=== PATIENT | female | born 1940 | race Caucasian/White ===

== ENCOUNTER → 2021-11-11 14:30 | Outpatient (BNVA) | payer MEDICARE, OTHER, SELFPAY | PROVIDERS: PCP Physical Medicine & Rehabilitation; Visit Provider Internal Medicine | DX: M47.816 Spondylosis without myelopathy or radiculopathy, lumbar region (principal) | CPT/HCPCS: 99202 ==

== ENCOUNTER 2022-01-08 08:42 | Day surgery (SDC) | payer MEDICARE, OTHER, SELFPAY ==
--- NOTE | ~2022-01-08 | FL_ITS ---
EXAMINATION: XR FLUOROSCOPY WITH IMAGES CLINICAL INFORMATION: Lumbar medial branch RFA COMPARISON: None. TECHNIQUE: Fluoroscopy performed by Dr. Oswaldo León. Fluoroscopy time: 0.3 minutes. Cumulative Dose: 11.4 mGy. DAP: 1.10 Gy-cm2. Images: 3. FINDINGS: There are spinal needles/electrodes overlying the outer right L3, L4, and L5 neural foramen. There are multilevel degenerative changes with disc narrowing and vertebral spurring. FL/FL guidance in OR IMPRESSION: Fluoroscopy for pain management procedures.
[2022-01-08 09:18] VITALS: BMI 19.1
[2022-01-08 09:42] VITALS: BP 115/64; PULSE 74; RESP 15; TEMP 36.6; O2SAT 97
--- NOTE | 2022-01-08 11:35 | MHC.SHP ---
Pre-Procedural Eval Section A Date of Service: 01/08/22 The patient is an INPATIENT: No Changes since office visit: Yes Patient answered all questions The History & Physical has been completed within 30 days and I have reviewed it.: Yes Section B Chief Complaint: Spondylosis without myelopathy or radiculopathy Relevant Family History (Specify if Yes): No Relevant Social History: None Present Medications: see Short Stay Collaborative assessment Medical History: No relevant PMH History of Previous Operations: No relevant previous surgery Allergies: Allergies Allergy/AdvReac Type Severity Reaction Status Date / Time amoxicillin [From Augmentin] AdvReac Severe Diarrhea Verified 11/11/21 14:42 clavulanic acid AdvReac Severe Diarrhea Verified 11/11/21 14:42 [From Augmentin] Review of Systems Sugical H&P ROS: Negative: Constitution, Cardiovascular and Respiratory Exam Surgical H&P Exam: Normal: HEENT, Normal: Heart and Normal: Lungs Plan Diagnosis/Plan: Unchanged I have reviewed the history and physical and performed a pertinent physical examination on my patient. No changes have occurred unless specified.
--- NOTE | 2022-01-08 11:35 | PM.OP ---
Brief Operative Note Date of Service: 01/08/22 Pre-op diagnosis: Lumbar spondylosis Post-op diagnosis: same Procedure: Right lumbar medial branches L3, L4, L5 DR radiofrequency ablation Implants: None Surgeon: Oswaldo León MD Anesthesia: local Was an Wood Type Finisher used for this Procedure?: No Estimated blood loss (mL): 1 Pathology: none sent Condition: stable Disposition: same day
--- NOTE | 2022-01-08 11:36 | W.PM.OPN ---
Operative Note Operative Note Date of Service: 01/08/22 Narrative: Radiofrequency lesioning medial branch nerves, Right L3, L4 medial branches and L5 dorsal ramus (L4/5 and L5/S1) (2 levels, 3 nerves) After obtaining written consent, pre-procedure blood pressure and heart rate were stable and recorded in the nursing record. Standard monitors were applied. The patient was placed in the prone position. The lumbar area was prepped with chloraprep and draped in sterile fashion. The skin over the target for each medial branch nerve was anesthetized with 0.5% lidocaine. An 18 gauge radiofrequency cannula was advanced to each target site under fluoroscopic guidance. No paresthesias were elicited with needle placement and aspiration was negative for heme and CSF. Impedences were verified under 600 ohms. Sensory testing (50 Hz) and then motor testing (2 Hz) confirmed needle placement at each site within the appropriate voltage thresholds. Each site was injected with 0.5 ml 2% preservative-free lidocaine. Radiofrequency lesioning was performed for 90 seconds at 80 deg Celcius. Each site was then injected with 0.5ml 0.5% ropivacaine. The needle was removed, skin cleansed and a sterile bandage was applied. The patient tolerated the procedure well and no complications were encountered. Following the procedure the patient's vital signs were stable. The patient was discharged home in good condition with post-procedural instructions. Time Out: Immediately prior to the procedure, the following was verbally confirmed that there is a signed consent form and that the correct patient, planned procedure, site and side are consistent with documentation and that necessary equipment and/or blood products are available prior to the start of the case. Complications: none EBL: <5 cc
[2022-01-08 12:19] VITALS: BP 102/57; PULSE 67; RESP 16; TEMP 36.9; O2SAT 99
== END 2022-01-08 12:24 | disposition home or self-care (01) ==
PROVIDERS: PCP Family Medicine; Visit Provider Internal Medicine
PROC: (CPT 64635; principal; 2022-01-08 10:00)
DX: M47.816 Spondylosis without myelopathy or radiculopathy, lumbar region (principal); I10 Essential (primary) hypertension; E78.5 Hyperlipidemia, unspecified; K21.9 Gastro-esophageal reflux disease without esophagitis; J30.2 Other seasonal allergic rhinitis; Z79.899 Other long term (current) drug therapy; Z88.1 Allergy status to other antibiotic agents; Z85.3 Personal history of malignant neoplasm of breast
CPT/HCPCS: 64635; 64636

== ENCOUNTER 2022-01-29 10:40 | Day surgery (SDC) | payer MEDICARE, OTHER, SELFPAY ==
--- NOTE | ~2022-01-29 | FL_ITS ---
EXAMINATION: XR FLUOROSCOPY WITH IMAGES CLINICAL INFORMATION: RFA COMPARISON: Fluoroscopic spot views 01/08/2022. TECHNIQUE: Fluoroscopy performed by Dr. Oswaldo León. Fluoroscopy time: 0.4 minutes. Cumulative Dose: 7.24 mGy. DAP: 0.872 Gy-cm2. Images: 2. FINDINGS: There are 3 needles with tips overlying the outer left L3, L4, and L5 neural foramen. Degenerative disc changes are present lower lumbar spine with disc narrowing and vertebral spurring. FL/FL guidance in OR IMPRESSION: Fluoroscopy for pain management procedures.
[2022-01-29 10:08] VITALS: BMI 19.1
[2022-01-29 10:54] VITALS: BP 115/70; PULSE 87; RESP 18; TEMP 36.6; O2SAT 96
[2022-01-29 12:39] VITALS: BP 118/65; PULSE 76; RESP 18; TEMP 37.1; O2SAT 96
--- NOTE | 2022-01-29 12:57 | MHC.SHP ---
Pre-Procedural Eval Section A Date of Service: 01/29/22 The patient is an INPATIENT: No Changes since office visit: Yes Patient answered all questions The History & Physical has been completed within 30 days and I have reviewed it.: Yes Section B Chief Complaint: Spondylosis without myelopathy or radiculopathy Relevant Family History (Specify if Yes): No Relevant Social History: None Present Medications: see Short Stay Collaborative assessment Medical History: No relevant PMH History of Previous Operations: No relevant previous surgery Allergies: Allergies Allergy/AdvReac Type Severity Reaction Status Date / Time amoxicillin [From Augmentin] AdvReac Severe Diarrhea Verified 11/11/21 14:42 clavulanic acid AdvReac Severe Diarrhea Verified 11/11/21 14:42 [From Augmentin] Review of Systems Sugical H&P ROS: Negative: Constitution, Cardiovascular and Respiratory Exam Surgical H&P Exam: Normal: HEENT, Normal: Heart and Normal: Lungs Plan Diagnosis/Plan: Unchanged I have reviewed the history and physical and performed a pertinent physical examination on my patient. No changes have occurred unless specified.
--- NOTE | 2022-01-29 12:58 | PM.OP ---
Brief Operative Note Date of Service: 01/29/22 Pre-op diagnosis: Lumbar spondylosis Post-op diagnosis: same Procedure: Lumbar L3/L4/L5 medial branches radiofrequency ablation, left Implants: None Surgeon: Oswaldo León MD Anesthesia: local Was an Chemist Instrumentation used for this Procedure?: No Estimated blood loss (mL): 2 Pathology: none sent Condition: stable Disposition: same day
--- NOTE | 2022-01-29 12:59 | P.OP_ITS ---
Operative Note Operative Note Date of Service: 01/29/22 Narrative: Radiofrequency lesioning medial branch nerves, Left L3, L4 medial branches and L5 dorsal ramus (L4/5 and L5/S1) (2 levels, 3 nerves) After obtaining written consent, pre-procedure blood pressure and heart rate were stable and recorded in the nursing record. The patient was placed in the prone position. The lumbar area was prepped with chloraprep and draped in sterile fashion. The skin over the target for each medial branch nerve was anesthetized with 0.5% lidocaine. An 18 gauge radiofrequency cannula was advanced to each target site under fluoroscopic guidance. No paresthesias were elicited with needle placement and aspiration was negative for heme and CSF. Impedences were verified under 600 ohms. Sensory testing (50 Hz) and then motor testing (2 Hz) confirmed needle placement at each site within the appropriate voltage thresholds. Each site was injected with 1 ml 2% preservative-free lidocaine. Radiofrequency lesioning was performed for 90 seconds at 80 deg Celcius. Each site was then injected with 0.5ml 0.5% ropivacaine. The needle was removed, skin cleansed and a sterile bandage was applied. The patient tolerated the procedure well and no complications were encountered. Following the pr ocedure the patient's vital signs were stable. The patient was discharged home in good condition with post-procedural instructions. Time Out: Immediately prior to the procedure, the following was verbally confirmed that there is a signed consent form and that the correct patient, planned procedure, site and side are consistent with documentation and that necessary equipment and/or blood products are available prior to the start of the case. Complications: none EBL: <5 cc
== END 2022-01-29 13:00 | disposition home or self-care (01) ==
PROVIDERS: PCP Family Medicine; Visit Provider Internal Medicine
PROC: (CPT 64635; principal; 2022-01-29 11:30)
DX: M47.816 Spondylosis without myelopathy or radiculopathy, lumbar region (principal); I10 Essential (primary) hypertension; E78.5 Hyperlipidemia, unspecified; J30.2 Other seasonal allergic rhinitis; Z79.899 Other long term (current) drug therapy; Z88.1 Allergy status to other antibiotic agents; Z85.3 Personal history of malignant neoplasm of breast
CPT/HCPCS: 64635; 64636

== ENCOUNTER → 2022-02-28 11:04 | Outpatient (BNVA) | payer MEDICARE, OTHER, SELFPAY | PROVIDERS: PCP Family Medicine; Visit Provider Internal Medicine | DX: M54.50 Low back pain, unspecified (principal); G89.29 Other chronic pain; M47.816 Spondylosis without myelopathy or radiculopathy, lumbar region; M47.812 Spondylosis without myelopathy or radiculopathy, cervical region | CPT/HCPCS: 99212 ==

== ENCOUNTER 2022-04-02 06:06 | Outpatient (REF) | payer MEDICARE, OTHER, SELFPAY ==
--- NOTE | ~2022-04-02 | FL_ITS ---
EXAMINATION: XR FLUOROSCOPY WITH IMAGES CLINICAL INFORMATION: Spondylosis without myelopathy cervical region. COMPARISON: None. TECHNIQUE: Fluoroscopy performed by Dr. Oswaldo León. Fluoroscopy time: 0.1. Cumulative Dose: 1.45 mGy. DAP: 0.19 Gy-cm2. Images: 2. FINDINGS: Intraoperative fluoroscopy images of the cervical spine in AP and lateral views demonstrate needles and contrast along the lateral aspects of C3-C5. FL/FL guidance in treatment room IMPRESSION: Intraoperative fluoroscopy performed for pain management procedure.
== END 2022-04-02 06:07 | disposition home or self-care (01) ==
LOC: CF 06:06
PROVIDERS: Visit Provider Internal Medicine
DX: M47.812 Spondylosis without myelopathy or radiculopathy, cervical region (principal)
CPT/HCPCS: 64490; 64491

== ENCOUNTER 2022-04-09 05:43 | Outpatient (REF) | payer MEDICARE, OTHER, SELFPAY ==
--- NOTE | ~2022-04-09 | FL_ITS ---
EXAMINATION: XR FLUOROSCOPY WITH IMAGES CLINICAL INFORMATION: M47.812 - Spondylosis without myelopathy or radiculopathy, cervical region COMPARISON: Fluoroscopic spot views 04/02/2022 TECHNIQUE: Fluoroscopy performed by Dr. Oswaldo León. Fluoroscopy time: 0.1 minutes. Cumulative Dose: 1.45 mGy. DAP: 0.109 Gy-cm2. Images: 2. FINDINGS: There are spinal needles overlying the right lateral masses cervical spine approximately C3, C4, and C5. There is contrast in the paraspinal soft tissues, nerve sheaths, and possibly in the facet joint. No visible vascular communication. There are degenerative changes cervical spine with disc narrowing and vertebral spurring. FL/FL guidance in treatment room IMPRESSION: Fluoroscopy for pain management procedure.
== END 2022-04-09 05:44 | disposition home or self-care (01) ==
LOC: HO.RADIR 05:43
PROVIDERS: Visit Provider Internal Medicine
DX: M47.812 Spondylosis without myelopathy or radiculopathy, cervical region (principal)
CPT/HCPCS: 64490; 64491

== ENCOUNTER 2022-08-07 14:00 | Outpatient (RCR) | payer MEDICARE, OTHER, SELFPAY | END 2022-08-07 14:51 | disposition home or self-care (01) | LOC: HO.PT 14:00 | PROVIDERS: PCP Family Medicine; Visit Provider Internal Medicine Gastroenterology | DX: M99.05 Segmental and somatic dysfunction of pelvic region (principal) | CPT/HCPCS: 97112; 97140; 97161 ==

== ENCOUNTER → 2022-08-15 11:26 | Outpatient (BNVA) | payer MEDICARE, OTHER, SELFPAY | PROVIDERS: PCP Family Medicine; Visit Provider Internal Medicine | DX: M47.812 Spondylosis without myelopathy or radiculopathy, cervical region (principal); M47.816 Spondylosis without myelopathy or radiculopathy, lumbar region; M54.50 Low back pain, unspecified; G89.29 Other chronic pain | CPT/HCPCS: 99212 ==

== ENCOUNTER 2022-10-01 12:34 | Day surgery (SDC) | payer MEDICARE, OTHER, SELFPAY ==
--- NOTE | ~2022-10-01 | FL_ITS ---
EXAMINATION: XR FLUOROSCOPY WITH IMAGES CLINICAL INFORMATION: Sprint Lumbar medial branch COMPARISON: Fluoroscopic spot views 01/29/2022 TECHNIQUE: Fluoroscopy Supervised By: Dr. Oswaldo León. Fluoroscopy Time: 0.1 minutes. Cumulative Dose: 1.42 mGy. DAP: 0.385 Gycm2. Images: 1. FINDINGS: There is a needle with tip pointing towards the L4 foramen. Multilevel degenerative disc changes and vertebral spurring. FL/FL guidance in OR IMPRESSION: Fluoroscopy for pain management procedure.
[2022-10-01 12:58] VITALS: BP 127/60; PULSE 80; RESP 18; TEMP 36.6; O2SAT 95
[2022-10-01 12:59] VITALS: BMI 19.5
--- NOTE | 2022-10-01 13:15 | MHC.SHP ---
Pre-Procedural Eval Section A Date of Service: 10/01/22 The patient is an INPATIENT: No Changes since office visit: Yes Patient answered all questions The History & Physical has been completed within 30 days and I have reviewed it.: Yes Section B Chief Complaint: Spondylosis without myelopathy, chronic back pain Relevant Social History: None Present Medications: see Short Stay Collaborative assessment Medical History: No relevant PMH History of Previous Operations: No relevant previous surgery Allergies: Allergies Allergy/AdvReac Type Severity Reaction Status Date / Time amoxicillin [From Augmentin] AdvReac Severe Diarrhea Verified 08/15/22 11:37 clavulanic acid AdvReac Severe Diarrhea Verified 08/15/22 11:37 [From Augmentin] Review of Systems Sugical H&P ROS: Negative: Constitution, Cardiovascular and Respiratory Exam Surgical H&P Exam: Normal: HEENT, Normal: Heart and Normal: Lungs Plan Diagnosis/Plan: Unchanged I have reviewed the history and physical and performed a pertinent physical examination on my patient. No changes have occurred unless specified. Time Spent With Patient Time: Total time managing care of this patient today ____ minutes.
--- NOTE | 2022-10-01 13:16 | PM.OP ---
Brief Operative Note Date of Service: 10/01/22 Pre-op diagnosis: Lumbar spondylosis, chronic intractable back pain Post-op diagnosis: same Procedure: Right L3 Medial Branch Nerve Stimulation Trial Implants: SPR temporary PNS system Surgeon: Oswaldo León MD Anesthesia: local Was an Body Builder Apprentice used for this Procedure?: No Estimated blood loss (mL): 2 Pathology: none sent Condition: stable Disposition: same day
--- NOTE | 2022-10-01 13:17 | W.PM.OPN ---
Operative Note Operative Note Date of Service: 10/01/22 Narrative: Lumbar Medial Branch Nerve Stimulation Lead Placement, SPR (Sprint) System, Right L3 ? After the risks, benefits and alternatives were discussed with the patient and informed consent was obtained, patient was placed in the prone position and padded to foster comfort. The skin overlying the lumbosacral spine was prepped and draped in sterile fashion. Fluoroscopy was used to identify the spinous process and lamina in the center of the patient?s region of pain. After identifying and marking the intended target along the course of the medial branch nerve, the skin around the planned entry point and the subcutaneous tissues were injected with lidocaine 1%. An introducer needle and stimulating probe were assembled, inserted and advanced along the intended course of the medial branch nerve as it traverses the lamina medial and inferior to the zygapophyseal joint, taking care to maintain the proper depth of insertion as the introducer is advanced under fluoroscopic guidance. The introducer needle was delivered to a location in proximity to the nerve. Multiple stimulation parameters were used to deliver stimulation to the target medial branch nerve in concert with stimulating at multiple positions around the nerve. Nerve target acquisition was confirmed noting generation of paresthesias in the paravertebral regions corresponding to the level being stimulated. Various electrical parameter combinations were tested, and the lead location was adjusted (physically relocated) until the patient indicated paresthesia/muscle tension overlapping the distribution of the patient?s typical region of pain. The stimulating probe was removed from the introducer and a percutaneous lead was guided through the needle and delivered to a location in similar proximity to the nerve. Final location was verified with electrical stimulation and documented with fluoroscopy. The introducer needle was removed, and the exposed end of the percutaneous lead was attached to an external stimulator unit. Various electrical parameter combinations were again tested until the patient indicated paresthesia or muscle tension overlapping the distribution of the patient?s typical region of pain. After confirming that lead impedance was in the normal range, the external unit was detached, the needle was removed, and the lead was anchored at the skin. The lead was threaded into the connector block and electrical continuity and desired patient response was confirmed. The connector block was attached to the external stimulator unit. The site was covered with a sterile occlusive dressing. The patient was observed for stability of vital signs and comfort.
[2022-10-01 13:40] VITALS: BP 138/70; PULSE 78; RESP 16; TEMP 37.3; O2SAT 96
--- NOTE | 2022-10-01 14:43 | PC.NURSE ---
patient d/c to home neuros intact, ambulated to and from bathroom.
== END 2022-10-01 14:42 | disposition home or self-care (01) ==
PROVIDERS: PCP Family Medicine; Visit Provider Internal Medicine
PROC: (CPT 64555; principal; 2022-10-01 13:40)
DX: M47.816 Spondylosis without myelopathy or radiculopathy, lumbar region (principal); G89.29 Other chronic pain; M54.50 Low back pain, unspecified; M47.812 Spondylosis without myelopathy or radiculopathy, cervical region; I10 Essential (primary) hypertension; E78.5 Hyperlipidemia, unspecified; G47.00 Insomnia, unspecified; J30.2 Other seasonal allergic rhinitis; Z79.899 Other long term (current) drug therapy; Z88.1 Allergy status to other antibiotic agents; Z85.3 Personal history of malignant neoplasm of breast
CPT/HCPCS: 64555; C1778

== ENCOUNTER → 2022-10-06 13:31 | Outpatient (BNVA) | payer MEDICARE, OTHER, SELFPAY | PROVIDERS: PCP Family Medicine; Visit Provider Internal Medicine | DX: M47.816 Spondylosis without myelopathy or radiculopathy, lumbar region (principal); G89.29 Other chronic pain | CPT/HCPCS: 99212 ==

== ENCOUNTER → 2022-10-31 13:52 | Outpatient (BNVA) | payer MEDICARE, OTHER, SELFPAY | PROVIDERS: PCP Family Medicine; Visit Provider Internal Medicine ==

== ENCOUNTER → 2022-11-28 11:46 | Outpatient (BNVA) | payer MEDICARE, OTHER, SELFPAY | PROVIDERS: PCP Family Medicine; Visit Provider Internal Medicine ==

== ENCOUNTER 2024-11-18 12:36 | Outpatient (AMB) | payer MEDICARE, OTHER, SELFPAY ==
--- NOTE | 2024-11-18 12:37 | A.OFFVIS_ITS ---
Vital Signs 11/18/24 12:40 Height 5 ft 3 in Weight 113 lb BMI 20.0 BP 159/70 H Blood Pressure Location Lt brachial Position Sitting Respiration 16 Pulse 81 Pulse Source Pulse Oximeter Pulse Oximetry (%) 95 Oxygen Delivery Method Room Air Intake Visit Reasons: Low Back Pain GABRIELA 11/28/22 Junior Sales Assistant Required: No Allergies amoxicillin (From Augmentin) Adverse Reaction (Severe, Verified 11/18/24 12:41) Diarrhea clavulanic acid (From Augmentin) Adverse Reaction (Severe, Verified 11/18/24 12:41) Diarrhea Medication List - Last Reconciled 11/18/24 by Raquel Redding LPN atorvastatin (Lipitor) 20 mg PO BEDTIME coenzyme Q10 (CoQ-10) 30 mg PO DAILY famotidine 40 mg PO BEDTIME gabapentin 100 mg PO BEDTIME gabapentin 300 mg PO TID ginkgo biloba 120 mg PO DAILY lactobacillus combination no.4 (Probiotic) 3,000 mmu cells PO DAILY lisinopril 20 mg PO DAILY magnesium oxide 200 mg PO DAILY melatonin 3 mg PO BEDTIME PRN mirabegron ER 25 mg PO DAILY pantoprazole 20 mg PO DAILY pyridoxine (vitamin B6) 50 mg PO DAILY therapeutic multivitamin 5 mL PO DAILY valerian root 200 mg PO TID-QID PRN wheat dextrin (Benefiber Clear Sugar Free(dextrin)) 1.5 grams PO BID HPI HPI Low Back Pain GABRIELA 11/28/22: Details: History of Present Illness The patient is an 84-year-old female presenting with persistent chronic low back pain for many years. She reported a history of medial branch nerve stimulation in 2022 with good initial results, and recent attempts at sprint therapy and cortisone injections which were not effective long-term. Her back pain scores between 1 to 3, exacerbated by walking, and she is unable to engage in extended walking activities due to increased pain. Sitting reduces pain significantly. The patient experiences morning instability requiring a walker. Despite limited information on past imaging, a new MRI is being considered to evaluate potential spinal stenosis. She denies leg weakness, falls, or significant morning back pain. Pain Description - Onset and Timing: Pain persists for many years. - Quality and Character: Chronic low back pain. - Location: Lower back. - Pain Intensity: Varies between 1-3, dependent on activity. - Exacerbating Factors: Walking increases pain, occasional standing pain. - Relieving Factors: Sitting alleviates pain, temporary relief from cortisone injections. - Daily Function Impact: Unable to walk long distances due to pain. - Previous Treatments: Medial branch nerve stimulation was temporarily beneficial; cortisone injections effective for five days. Physical Exam - Appears afebrile. - Alert and oriented. - Mood and affect appropriate. - Follows and participates in conversation appropriately. - Respiratory effort is unlabored. - Able to transition from sit to stand unassisted. - Ambulates with bilaterally normal heel strike and toe off. - Able to stand and walk on toes and heels. Results Pain Management - Affect: Pain impacts walking capacity, but mood and psychological wellbeing not explicitly noted. - Analgesia: Medical branch nerve stimulation previously effective; current pain level 1-3. - Adverse Effects: No adverse effects reported from current management. - Activities of Daily Living: Restricted walking ability due to pain. - Aberrant Drug Related Behaviors: No behaviors reported indicating misuse or abuse. [facility] Medical History (Updated 11/18/24 @ 13:11 by Oswaldo León MD) Lumbar back pain Fracture of femoral neck, right Breast cancer GERD (gastroesophageal reflux disease) Insomnia Irritable bowel syndrome Seasonal allergies Hyperlipidemia Hypertension Surgical History (Updated 11/11/21 @ 14:48 by Estevan Swift) History of right hip hemiarthroplasty Social History (Updated 11/11/21 @ 14:53 by Estevan Swift) Patient Tobacco Use Status: Never used Tobacco Second Hand Smoke Exposure: No Substance Use Type: Crack/Cocaine Physical Exam Vital Signs: Last Vital Signs Pulse 81 11/18/24 12:40 Resp 16 11/18/24 12:40 BP 159/70 H 11/18/24 12:40 Pulse Ox 95 11/18/24 12:40 Oxygen Delivery Method Room Air 11/18/24 12:40 BMI result Body Mass Index 20.0 Assessment & Plan Assessment & Plan (1) Spinal stenosis, lumbar region with neurogenic claudication: Code(s): M48.062 - Spinal stenosis, lumbar region with neurogenic claudication Category: Medical Plan Plan - Obtain lumbar spine MRI in [place] as planned. - Review imaging to confirm diagnosis and inform future treatment steps. - Consider patient comfort and logistics for MRI given claustrophobia. Patient was informed and verbally consented to the use of an ambient scribe for clinic note documentation during this visit. Discussion Notes During this visit, I discussed the suspected diagnosis of spinal stenosis based on symptoms. I advised obtaining an MRI for confirmation as previous therapeutic measures provided only temporary relief. We conversed about obtaining the MRI locally; however, given the patient's preference and discomfort with enclosed areas due to claustrophobia, we decided on conducting this diagnostic test in [place]. I explained the necessity of imaging to further assess her condition and explore appropriate management options. We ensured arrangements for the patient's comfort during imaging. Follow-up was advised after obtaining the MRI results, ensuring we proceed with an informed plan. Patient Instructions - Schedule MRI in [place] as soon as possible. - Minimize activities that exacerbate back pain. - Continue to use a walker if needed for stability. - Follow up after the MRI to discuss next steps. Coding Level of Care Code Est Pt Level 3 (83833) Diagnoses Spinal stenosis, lumbar region with neurogenic claudication M48.062
[2024-11-18 12:40] VITALS: BP 159/70; PULSE 81; RESP 16; O2SAT 95
--- OUTSIDE RECORDS SUMMARY | 2024-11-18 13:07 | XMS_ITS ---
Author Organization [facility] Address [address] [place] [address] Care Team Providers Care Buncher Hand Name Role Phone Srikanth Kilpatrick MD Primary Care Provider Tomy Srivastava Unavailable [phone] [facility]counters En[facility] [address] [facility] Tomy Osborn Plan Of Treatment Next Appt Details Provider Name:Tomy Osborn , 01/05/2025 01:30:00 PM, [address] [place] [address], [id number], Progress Notes * Sam PENADOB:1940 (84 yo F)Acc No.[id number]:06/13/2024 Progress Note Patient:?Sam PENA Provider:?Tomy Osborn DPM :1940???Age:84 Y???Sex:Female D ate:06/13/2024 Address:[address], [address] [place], [place] [id number] Pcp:Srikanth Kilpatrick MD Subjective: * Chief Complaints: * ??? * Medical History:? Objective: * Vitals:? Assessment: Plan: * Treatment: * Images: * The named appointment provid er may or may not be the originator of this progress note, and it is not deemed complete until electronically signed by the appointment provider. Sign off status: Pending * Provider:?Tomy Osborn DPM Date:?2024 Generated for Rebecca lin/Blas/Minerva on:?11/18/2024 01:07 PM EDT
== END 2024-11-18 13:13 | disposition home or self-care (01) ==
PROVIDERS: PCP Family Medicine; Visit Provider Internal Medicine
DX: M48.062 Spinal stenosis, lumbar region with neurogenic claudication (principal)
CPT/HCPCS: 99213

== ENCOUNTER → 2024-11-18 12:36 | Outpatient (BNVA) | payer MEDICARE, OTHER, SELFPAY | PROVIDERS: PCP Family Medicine; Visit Provider Internal Medicine | DX: M48.062 Spinal stenosis, lumbar region with neurogenic claudication (principal) | CPT/HCPCS: 99212 ==